=== PATIENT | female | born 1975 ===

== ENCOUNTER → 2021-07-03 07:32 | Outpatient (CLI) | payer OTHER, SELFPAY ==
[2021-07-03 08:09] LABS: COVID19 -Nasal RAPID Negative (Negative)
== END ==
PROVIDERS: Visit Provider Nurse Practitioner
DX: Z20.822 Contact with and (suspected) exposure to COVID-19 (principal); R11.0 Nausea; R19.7 Diarrhea, unspecified
CPT/HCPCS: 87635